=== PATIENT | female | born 1985 | race African-American/Black ===

== ENCOUNTER 2018-04-03 23:59 | Emergency (ER) | payer OTHER ==
[~2018-04-03] VITALS: Ht 162.6 cm; Wt 90.7 kg
[~2018-04-03 23:59] MED LIST: AMOXICILLIN 50500 MG PO; AUGMENTIN 875875 MG PO; BIAXIN 500 MG500 M1 PO; FLEXERIL PO; IBUPROFEN 600600 M1 PO; IBUPROFEN 800800 MG PO; MEDROLDOSEPACK PO; NAPROSYN500 MG PO; NORCO 5-325 TA1 EACH PO
[2018-04-04 00:46] VITALS: BP 127/79
== END 2018-04-04 00:50 | disposition home or self-care (01) ==
LOC: ER 23:59
DX: J02.9 Acute pharyngitis, unspecified (principal); Z88.2 Allergy status to sulfonamides

== ENCOUNTER 2018-08-19 21:07 | Emergency (ER) | payer OTHER ==
[~2018-08-19] VITALS: Ht 162.6 cm; Wt 97.5 kg
[2018-08-19 21:20] VITALS: BP 123/79
[2018-08-19] MEDS ORDERED: IRON325 PO (21:23)
[2018-08-19] MEDS ORDERED: AUGMENTIN 875-1 EACH PO (22:14)
== END 2018-08-19 22:35 | disposition home or self-care (01) ==
LOC: ER 21:07
DX: J32.9 Chronic sinusitis, unspecified (principal); Z88.2 Allergy status to sulfonamides

== ENCOUNTER 2019-06-17 05:34 | Emergency (ER) | payer OTHER ==
[~2019-06-17] VITALS: Ht 162.6 cm; Wt 99.8 kg
[~2019-06-17 05:34] MED LIST changes: +AUGMENTIN 875-1 EACH PO; +IRON325 PO
[2019-06-17] MEDS ORDERED: CHILDREN'S ZYRT10 M1 PO (05:51)
[2019-06-17] MEDS ORDERED: TESSALON PERLE100 MG PO (07:07)
[2019-06-17 07:14] VITALS: BP 110/80
== END 2019-06-17 07:14 | disposition still patient (30) ==
LOC: ER 05:34
DX: J06.9 Acute upper respiratory infection, unspecified (principal); Z88.2 Allergy status to sulfonamides

== ENCOUNTER 2019-08-26 22:39 | Emergency (ER) | payer OTHER ==
[~2019-08-26] VITALS: Ht 162.6 cm; Wt 99.8 kg
[~2019-08-26 22:39] MED LIST changes: +CHILDREN'S ZYRT10 M1 PO; +TESSALON PERLE100 MG PO
[2019-08-26 22:40] VITALS: BP 145/94
[2019-08-26 23:07] LABS: URINE BILIRUBIN NEGATIVE (Negative); URINE BLOOD TRACE (Negative); URINE CLARITY CLEAR; URINE COLOR YELLOW; URINE GLUCOSE-RANDOM* NEGATIVE (Negative); URINE KETONES NEGATIVE (Negative); URINE LEUKOCYTES-REFLEX NEGATIVE (Negative); URINE NITRITE-REFLEX NEGATIVE (Negative); URINE PROTEIN (DIPSTICK) NEGATIVE (Negative); URINE SPECIFIC GRAVITY 1.015 (1.005-1.035)
[2019-08-26] MEDS ORDERED: IBUPROFEN 600600 M1 PO (23:16)
== END 2019-08-26 23:45 | disposition home or self-care (01) ==
LOC: ER 22:39
PROVIDERS: Emergency Medicine
DX: M54.6 Pain in thoracic spine (principal); Z79.899 Other long term (current) drug therapy; Z88.2 Allergy status to sulfonamides